=== PATIENT | male | born 1950 | race Caucasian/White ===

== ENCOUNTER → 2021-06-08 | Outpatient (CLI) | payer OTHER | LOC: KOH-I 10:13 | DX: J01.81 Other acute recurrent sinusitis (principal); J32.0 Chronic maxillary sinusitis; H66.91 Otitis media, unspecified, right ear; H70.11 Chronic mastoiditis, right ear | CPT/HCPCS: 70486 ==

== ENCOUNTER → 2021-12-14 | Outpatient (CLI) | payer OTHER | LOC: LBRF 13:33 | DX: H93.90 Unspecified disorder of ear, unspecified ear (principal) ==